=== PATIENT | female | born 1995 | race Caucasian/White ===

== ENCOUNTER 2025-05-01 10:43 | Emergency (ER) | payer OTHER ==
--- NOTE | 2025-05-01 10:55 | ERPHSYRPT ---
- History of Present Illness Time Seen by Provider: 05/01/25 10:55 Source: patient, family Exam Limitations: no limitations Patient Subjective Stated Complaint: . Triage Nursing Assessment: . Physician History: This is a 29-year-old diabetic female who presents to the emergency department greater than 1 week after her insulin pump malfunction. She has not had it fixed yet. She has been monitoring her blood sugar by Accu-Cheks and giving herself injections based on those values. She has a history of anxiety and hypothyroidism. Patient was seen yesterday, 04/30/2025, at [facility] emergency department and I reviewed those external outside records. Her complaint is that the blood sugars are poorly controlled compared to when she is using the insulin pump. In addition she is noticed to have ketones in her urine. She has not vomited. She has not had diarrhea. She has no complaints of chest pain or abdominal pain. She did have vomiting 2 days ago. Nausea is present. In reviewing her workup yesterday from the [facility] emergency department notes, the patient did not have DKA but hyperglycemia. She had a normal pH. Timing/Duration: today Severity: mild Associated Symptoms: nausea (To moderate), No vomiting, No abdominal pain, No shortness of breath, No chest pain, No weakness Allergies/Adverse Reactions: No Known Drug Allergies Allergy (Unverified 05/01/25 10:49) Home Medications: Doxepin HCl 3 mg PO DAILY 05/01/25 [History] Insulin Glargine [Lantus Insulin] 45 units SQ HS 05/01/25 [History] Insulin Lispro [Humalog] 1 ea UD 05/01/25 [History] Levocetirizine Dihydrochloride 5 mg PO DAILY 05/01/25 [History] Levothyroxine Sodium 25 mcg PO DAILY 05/01/25 [History] Medroxyprogesterone Acetate 1 ea DAILY 05/01/25 [History] Hx Tetanus, Diphtheria Vaccination/Date Given: No Hx Influenza Vaccination/Date Given: No Hx Pneumococcal Vaccination/Date Given: No Immunizations Up to Date: No Travel Risk - International Travel Have you traveled outside of the country in past 3 weeks: No - Emerging Infectious Disease Are you exhibiting symptoms associated with any current EIDs: No - Review of Systems Constitutional: No Symptoms Eyes: No Symptoms Ears, Nose, & Throat: No Symptoms Respiratory: No Symptoms Cardiac: No Symptoms Abdominal/Gastrointestinal: Nausea, No Abdominal Pain, No Vomiting, No Diarrhea, No Appetite Changes Genitourinary Symptoms: No Symptoms Musculoskeletal: No Symptoms Skin: No Symptoms Neurological: No Symptoms Psychological: No Symptoms Endocrine: No Symptoms Hematologic/Lymphatic: No Symptoms Immunological/Allergic: No Symptoms All Other Systems: Reviewed and Negative - Past Medical History Pertinent Past Medical History: Yes - Female History Hx Last Menstrual Period: NOVEMBER Hx Now: No - Social History Smoking Status: Former smoker Exposure to second hand smoke: No Drug Use: none - Social Determinants of Health Will the patient participate in the screening: Declined to provide Comment: FEELS SAFE AT HOME - Nursing Vital Signs Nursing Vital Signs: Initial Vital Signs Temperature 97.2 F 05/01/25 10:57 Pulse Rate 100 H 05/01/25 10:57 Respiratory Rate 18 05/01/25 10:57 Blood Pressure 111/73 05/01/25 10:57 O2 Sat by Pulse Oximetry 98 05/01/25 10:57 Pain Scale Pain Intensity 0 - Physical Exam General Appearance: no apparent distress, alert, anxiety Eye Exam: PERRL/EOMI, eyes nml inspection Ears, Nose, Throat Exam: normal ENT inspection, moist mucous membranes Neck Exam: normal inspection, non-tender, supple, full range of motion Respiratory Exam: normal breath sounds, lungs clear, airway intact, No chest tenderness, No respiratory distress Cardiovascular Exam: regular rate/rhythm, normal heart sounds, normal peripheral pulses Gastrointestinal/Abdomen Exam: soft, normal bowel sounds, No tenderness Pelvic Exam: not done Rectal Exam: not done Back Exam: normal inspection, normal range of motion, No CVA tenderness, No vertebral tenderness Extremity Exam: normal inspection, normal range of motion, pelvis stable Neurologic Exam: alert, oriented x 3, cooperative, special effects artist II-XII nml as tested, nml cerebellar function, nml station & gait, sensation nml Skin Exam: normal color, warm, dry Lymphatic Exam: No adenopathy SpO2 Interpretation: normal O2 Delivery: Room Air - Course Nursing assessment & vital signs reviewed: Yes Ordered Tests: Active Orders 24 hr Category Date Time 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 05/01/25 11:25 Active IV Insertion STAT Care 05/01/25 11:25 Active POCT Glucose Check STAT Care 05/01/25 11:25 Completed Pulse Oximetry (ED) STAT Care 05/01/25 11:25 Active CBC W DIFF Stat Lab 05/01/25 11:30 Completed CMP Stat Lab 05/01/25 11:30 Completed HCG QUALITATIVE, SERUM Stat Lab 05/01/25 11:30 Completed Lactic Acid Stat Lab 05/01/25 11:40 Completed MAGNESIUM Stat Lab 05/01/25 11:30 Completed POCT GLUCOSE Stat Lab 05/01/25 13:25 Completed UA W/RFX UR CULTURE Stat Lab 05/01/25 11:27 Completed VBG [VENOUS BLOOD GAS] Stat Lab 05/01/25 11:35 Completed Medication Summary Discontinued Medications Generic Name Dose Route Start Last Admin Trade Name Andre PRN Reason Stop Dose Admin Sodium Chloride 1,000 mls @ 999 mls/hr 05/01/25 11:25 05/01/25 12:35 Sodium Chloride 0.9% 1000 Ml IV 05/01/25 12:25 Infused .Q1H1M STA Infusion Sodium Chloride Confirm 05/01/25 11:30 Sodium Chloride 0.9% 1000 Ml Administered 05/01/25 11:31 Dose 1,000 mls @ ud .ROUTE .STK-MED ONE Lactated Ringer's 1,000 mls @ 999 mls/hr 05/01/25 12:45 05/01/25 14:51 Lactated Ringers IV 05/01/25 13:45 Infused .Q1H1M ONE Infusion Lactated Ringer's Confirm 05/01/25 13:42 Lactated Ringers Administered 05/01/25 13:43 Dose 1,000 mls @ ud IV .STK-MED ONE Lab/Rad Data: Laboratory Result Diagrams 05/01/25 11:30 05/01/25 11:30 Laboratory Results 05/01/25 05/01/25 05/01/25 Range/Units 13:25 11:40 11:35 WBC (3.98-10.04) x10^3/uL RBC (3.93-5.22) x10^6/uL Hgb (11.2-15.7) g/dL Hct (34.1-44.9) % MCV (79.4-94.8) fL MCH (25.6-32.2) pg MCHC (32.2-35.5) g/dL RDW (11.7-14.4) % Plt Count (182-369) x10^3/uL MPV (9.4-12.3) fL Gran % (34.0-71.1) % Immature Gran % (Auto) (0.001-0.429) % Nucleat RBC Rel Count (0.00-0.2) % Eos # (Auto) (0.04-0.36) x10^3/uL Immature Gran # (Auto) (0.001-0.031) x10^3u/L Absolute Lymphs (auto) (1.18-3.74) x10^3/uL Absolute Monos (auto) (0.24-0.86) x10^3/uL Absolute Nucleated RBC (0.00-0.012) x10^3u/L Lymphocytes % (19.3-51.7) % Monocytes % (4.7-12.5) % Eosinophils % (0.7-5.8) % Basophils % (0.1-1.2) % Absolute Granulocytes (1.56-6.13) x10^3/uL Basophils # (0.01-0.08) x10^3/uL pO2/FiO2 Ratio 21.0 % VBG pH 7.40 (7.32-7.42) VBG pCO2 at Pat Temp 36 L (42-55) mm/Hg VBG pO2 at Pat Temp 43 H (25-40) mm/Hg VBG HCO3 22.3 (22-28) meq/L VBG O2 Sat (Rigo) 76.8 L (95-100) VBG Base Excess -2.0 (-2.0-2.0) VBG Hemoglobin 14.4 VBG Carboxyhemoglobin 3.5 (0.0-6.9) % T HGB POC Potassium 3.9 (3.5-5.1) Sodium (135-145) mmol/L Potassium (3.5-5.1) mmol/L Chloride (98-107) mmol/L Carbon Dioxide (22-30) mmol/L Anion Gap (5-15) MEQ/L BUN (7-17) mg/dL Creatinine (0.52-1.04) mg/dL Estimated GFR ML/MIN Glucose (74-106) mg/dL POC Glucometer 195 H (74 to 106) mg/dL Lactic Acid 1.6 (0.4-2.0) Calcium (8.4-10.2) mg/dL Magnesium (1.6-2.3) mg/dL Total Bilirubin (0.2-1.3) mg/dL AST (14-36) U/L ALT (0-35) U/L Alkaline Phosphatase (38-126) U/L Serum Total Protein (6.3-8.2) g/dL Albumin (3.5-5.0) g/dL Serum HCG, Qual (NEGATIVE) Urine Color (Yellow) Urine Appearance (Clear) Urine pH (4.6-8.0) Ur Specific [place] (1.005-1.030) Urine Protein (Negative) Urine Glucose (UA) (Negative) mg/dL Urine Ketones (Negative) Urine Blood (Negative) Urine Nitrite (Negative) Urine Bilirubin (Negative) Urine Urobilinogen (0.2) mg/dL Ur Leukocyte Esterase (Negative) U Hyaline Cast (Auto) (0-2) /LPF Urine Microscopic RBC (0-5) /HPF Urine Microscopic WBC (0-5) /HPF Ur Epithelial Cells (None Seen) /HPF Urine Bacteria (None Seen) /HPF Urine Culture Reflexed (NO) 05/01/25 05/01/25 05/01/25 Range/Units 11:30 11:30 11:30 WBC 9.6 (3.98-10.04) x10^3/uL RBC 4.98 (3.93-5.22) x10^6/uL Hgb 13.8 (11.2-15.7) g/dL Hct 40.8 (34.1-44.9) % MCV 81.9 (79.4-94.8) fL MCH 27.7 (25.6-32.2) pg MCHC 33.8 (32.2-35.5) g/dL RDW 13.0 (11.7-14.4) % Plt Count 359 (182-369) x10^3/uL MPV 11.0 (9.4-12.3) fL Gran % 73.2 H (34.0-71.1) % Immature Gran % (Auto) 0.6 H (0.001-0.429) % Nucleat RBC Rel Count 0.0 (0.00-0.2) % Eos # (Auto) 0.07 (0.04-0.36) x10^3/uL Immature Gran # (Auto) 0.06 H (0.001-0.031) x10^3u/L Absolute Lymphs (auto) 1.92 (1.18-3.74) x10^3/uL Absolute Monos (auto) 0.48 (0.24-0.86) x10^3/uL Absolute Nucleated RBC 0.00 (0.00-0.012) x10^3u/L Lymphocytes % 20.0 (19.3-51.7) % Monocytes % 5.0 (4.7-12.5) % Eosinophils % 0.7 (0.7-5.8) % Basophils % 0.5 (0.1-1.2) % Absolute Granulocytes 7.02 H (1.56-6.13) x10^3/uL Basophils # 0.05 (0.01-0.08) x10^3/uL pO2/FiO2 Ratio % VBG pH (7.32-7.42) VBG pCO2 at Pat Temp (42-55) mm/Hg VBG pO2 at Pat Temp (25-40) mm/Hg VBG HCO3 (22-28) meq/L VBG O2 Sat (Rigo) (95-100) VBG Base Excess (-2.0-2.0) VBG Hemoglobin VBG Carboxyhemoglobin (0.0-6.9) % T HGB POC Potassium (3.5-5.1) Sodium 135 (135-145) mmol/L Potassium 3.9 (3.5-5.1) mmol/L Chloride 104 (98-107) mmol/L Carbon Dioxide 23 (22-30) mmol/L Anion Gap 12.8 (5-15) MEQ/L BUN 12 (7-17) mg/dL Creatinine 0.58 (0.52-1.04) mg/dL Estimated GFR 124.8 ML/MIN Glucose 258 H (74-106) mg/dL POC Glucometer (74 to 106) mg/dL Lactic Acid (0.4-2.0) Calcium 9.0 (8.4-10.2) mg/dL Magnesium 1.8 (1.6-2.3) mg/dL Total Bilirubin 0.60 (0.2-1.3) mg/dL AST 21 (14-36) U/L ALT 17 (0-35) U/L Alkaline Phosphatase 83 (38-126) U/L Serum Total Protein 7.6 (6.3-8.2) g/dL Albumin 4.3 (3.5-5.0) g/dL Serum HCG, Qual NEGATIVE (NEGATIVE) Urine Color (Yellow) Urine Appearance (Clear) Urine pH (4.6-8.0) Ur Specific [place] (1.005-1.030) Urine Protein (Negative) Urine Glucose (UA) (Negative) mg/dL Urine Ketones (Negative) Urine Blood (Negative) Urine Nitrite (Negative) Urine Bilirubin (Negative) Urine Urobilinogen (0.2) mg/dL Ur Leukocyte Esterase (Negative) U Hyaline Cast (Auto) (0-2) /LPF Urine Microscopic RBC (0-5) /HPF Urine Microscopic WBC (0-5) /HPF Ur Epithelial Cells (None Seen) /HPF Urine Bacteria (None Seen) /HPF Urine Culture Reflexed (NO) 05/01/25 Range/Units 11:27 WBC (3.98-10.04) x10^3/uL RBC (3.93-5.22) x10^6/uL Hgb (11.2-15.7) g/dL Hct (34.1-44.9) % MCV (79.4-94.8) fL MCH (25.6-32.2) pg MCHC (32.2-35.5) g/dL RDW (11.7-14.4) % Plt Count (182-369) x10^3/uL MPV (9.4-12.3) fL Gran % (34.0-71.1) % Immature Gran % (Auto) (0.001-0.429) % Nucleat RBC Rel Count (0.00-0.2) % Eos # (Auto) (0.04-0.36) x10^3/uL Immature Gran # (Auto) (0.001-0.031) x10^3u/L Absolute Lymphs (auto) (1.18-3.74) x10^3/uL Absolute Monos (auto) (0.24-0.86) x10^3/uL Absolute Nucleated RBC (0.00-0.012) x10^3u/L Lymphocytes % (19.3-51.7) % Monocytes % (4.7-12.5) % Eosinophils % (0.7-5.8) % Basophils % (0.1-1.2) % Absolute Granulocytes (1.56-6.13) x10^3/uL Basophils # (0.01-0.08) x10^3/uL pO2/FiO2 Ratio % VBG pH (7.32-7.42) VBG pCO2 at Pat Temp (42-55) mm/Hg VBG pO2 at Pat Temp (25-40) mm/Hg VBG HCO3 (22-28) meq/L VBG O2 Sat (Rigo) (95-100) VBG Base Excess (-2.0-2.0) VBG Hemoglobin VBG Carboxyhemoglobin (0.0-6.9) % T HGB POC Potassium (3.5-5.1) Sodium (135-145) mmol/L Potassium (3.5-5.1) mmol/L Chloride (98-107) mmol/L Carbon Dioxide (22-30) mmol/L Anion Gap (5-15) MEQ/L BUN (7-17) mg/dL Creatinine (0.52-1.04) mg/dL Estimated GFR ML/MIN Glucose (74-106) mg/dL POC Glucometer (74 to 106) mg/dL Lactic Acid (0.4-2.0) Calcium (8.4-10.2) mg/dL Magnesium (1.6-2.3) mg/dL Total Bilirubin (0.2-1.3) mg/dL AST (14-36) U/L ALT (0-35) U/L Alkaline Phosphatase (38-126) U/L Serum Total Protein (6.3-8.2) g/dL Albumin (3.5-5.0) g/dL Serum HCG, Qual (NEGATIVE) Urine Color Yellow (Yellow) Urine Appearance Clear (Clear) Urine pH 5.5 (4.6-8.0) Ur Specific [place] >=1.030 A (1.005-1.030) Urine Protein Negative (Negative) Urine Glucose (UA) >=1000 A (Negative) mg/dL Urine Ketones >=160 A (Negative) Urine Blood Moderate A (Negative) Urine Nitrite Negative (Negative) Urine Bilirubin Negative (Negative) Urine Urobilinogen 0.2 (0.2) mg/dL Ur Leukocyte Esterase Negative (Negative) U Hyaline Cast (Auto) NONE SEEN (0-2) /LPF Urine Microscopic RBC 21-50 A (0-5) /HPF Urine Microscopic WBC 0-2 (0-5) /HPF Ur Epithelial Cells None Seen (None Seen) /HPF Urine Bacteria None Seen (None Seen) /HPF Urine Culture Reflexed NO (NO) - Progress Progress: improved, re-examined Progress Note: 05/01/25 13:30 My medical decision making and the assignment of moderate complexity of this patient's medical issue today is based on review of the patient's past medical history, review the patient's medication list, reviewed patient drug allergy list, history present illness and physical findings on examination. The In this patient includes placement of intravenous line, CBC, CMP, amylase, lipase, urinalysis, VBG, infusion of crystalloid solution. Differential diagnosis includes was not limited to pancreatitis, DKA, hyperglycemia, urinary tract infection, dehydration, ketonuria 05/01/25 15:11 I interpreted the patient's laboratory data results, based on laboratory data results, the patient has hyperglycemia but not DKA. She has a normal anion gap, she has a normal pH, she has a normal CO2 level. She does have ketones in her urine. We will provide her with aggressive rehydration. Counseled pt/family regarding: lab results, diagnosis Medical Desision Making - Diagnostic Testing Diagnostic test were ordered, analyzed, and reviewed by me: Yes - Risk of complications Low Risk: Low risk of morbidity from additional dx testing or treatment - Departure Departure Disposition: Home Clinical Impression: Hyperglycemia Condition: Stable Critical Care Time: No Referrals: DIONNA HOLLAND MD [Primary Care Provider, [facility]] - Follow up/PCP as directed Additional Instructions: Monitor your blood sugar closely. Provide yourself with the appropriate sliding scale of your insulin. Call your prescribing provider that is managing your diabetes on 05/03/2025, to make arrangements for helping you obtain a new insulin pump or provide you with instructions or make a plan for fixing the current insulin pump.
[2025-05-01 11:00] VITALS: TEMP 97.2
[2025-05-01 11:59] LABS: BASOPHIL % 0.5 % (0.1-1.2); Basophil (Absolute #) 0.05 x10^3/uL (0.01-0.08); Eosinophil (Absolute #) 0.07 x10^3/uL (0.04-0.36); Hematocrit 40.8 % (34.1-44.9); Hemoglobin 13.8 g/dL (11.2-15.7); IMMATURE GRAN # 0.06 x10^3u/L (0.001-0.031); IMMATURE GRAN % 0.6 % (0.001-0.429); Lymphocyte (Absolute #) 1.92 x10^3/uL (1.18-3.74); Mean Corpuscular Hemoglobin 27.7 pg (25.6-32.2); Mean Corpuscular Hgb Concent. 33.8 g/dL (32.2-35.5); Monocyte (Absolute #) 0.48 x10^3/uL (0.24-0.86); NUCLEATED RBC # 0.00 x10^3u/L (0.00-0.012); NUCLEATED RBC % 0.0 % (0.00-0.2); Platelet Count 359 x10^3/uL (182-369); Red Blood Count 4.98 x10^6/uL (3.93-5.22); White Blood Count 9.6 x10^3/uL (3.98-10.04)
[2025-05-01 12:10] LABS: Glucose, Urine >=1000 mg/dL (Negative); Protein,Urine Dip Negative (Negative); RBC 21-50 /HPF (0-5); WBC 0-2 /HPF (0-5)
[2025-05-01 12:12] LABS: HCG SERUM TEST NEGATIVE (NEGATIVE)
[2025-05-01 12:13] LABS: Calcium 9.0 mg/dL (8.4-10.2); Carbon Dioxide 23.0 mmol/L (22-30); Creatinine 1 0.58 mg/dL (0.52-1.04); EST GLOMERULAR FILTRATION RATE 124.8 ML/MIN; Glucose 258.0 mg/dL (74-106); Potassium 3.9 mmol/L (3.5-5.1); SGOT/AST 21.0 U/L (14-36); SGPT/ALT 17.0 U/L (0-35); Total Protein 7.6 g/dL (6.3-8.2)
[2025-05-01 12:49] LABS: VBG BASE EXCESS -2.0 (-2.0-2.0); VBG CARBOXYHEMOGLOBIN 3.5 % T HGB (0.0-6.9); VBG FIO2 21.0 %; VBG HCO3- 22.3 meq/L (22-28); VBG HEMOGLOBIN 14.4; VBG O2 SATURATION 76.8 (95-100); VBG PCO2 36.0 mm/Hg (42-55); VBG PO2 43.0 mm/Hg (25-40); VBG POTASSIUM 3.9 (3.5-5.1)
[2025-05-01] MEDS ORDERED: Lactated Ringers 1,000 ML IV ONE (13:42)
[2025-05-01] MEDS: Lactated Ringers 1,000 ML IV ONE (13:45)
[2025-05-01 15:40] VITALS: BP 110/77; PULSE 95; RESP 22; O2SAT 99
== END 2025-05-01 15:50 | disposition home or self-care (01) ==
LOC: ED 10:43
DX: E11.65 Type 2 diabetes mellitus with hyperglycemia (principal); Z79.4 Long term (current) use of insulin; Z79.899 Other long term (current) drug therapy